=== PATIENT | female | born 1985 | race Caucasian/White ===

== ENCOUNTER 2018-08-06 17:13 | Inpatient (IN) | payer OTHER ==
[2018-08-06 17:57] VITALS: BMI 34.8
[2018-08-06] MEDS ORDERED: Ondansetron PF 4 MG/2 ML Vial IVP PRN (18:11)
[2018-08-06] MEDS ORDERED: Promethazine HCl 25 MG/ML VIAL IM PRN (18:11)
[2018-08-06] MEDS ORDERED: HYDROcodone/Acetaminophen 5/325 mg Tablet PO PRN ×2 (18:13)
[2018-08-06] MEDS ORDERED: Lidocaine 1% (PF) 30 ML VIAL SC PRN (18:13)
[2018-08-06] MEDS ORDERED: NS / Oxytocin 40 units/1000ml 1,000 ML IV PRN (18:13)
[2018-08-06] MEDS ORDERED: Ibuprofen 800 MG TAB PO PRN (18:13)
--- NOTE | 2018-08-06 18:31 | PDOC.LDHP ---
Labor and Delivery H&P Chief complaint: other HPI: Sent from office for blood pressure evaluation by Dr. Bernard. Patient seen at [facility] between [phone] in L&D recovery room. HPI: She is a 32 yo at 38 weeks 5 days with EDC 08/15/18 here for BP eval. Pressure in office were 140/90s. No LOREDO, visual changes, RUQ pain. Good movement, no vag bleed or LOF. No recent trauma. Denies chronic HTN hx. Current gestational age (weeks): 38 Due date: 08/15/18 Dating criteria: last menstrual period Grav: 1 Para: 0 Current complications: none Abnormal US findings: No Current medications: pre- vitamins Previous surgical history: none Allergies/Adverse Reactions: Allergies Allergy/AdvReac Type Severity Reaction Status Date / Time No Known Allergies Allergy Verified 08/06/18 17:58 Social history: none - Physical Exam Vital signs reviewed and normal: yes (Last BP: 138/88 but prior 135/93) General: NAD Abdomen: gravid (NTTP, [place] EFW 7 lbs, cephalic. No visual markings.) Extremeties: trace edema FHT: category 1, variability present [place] contractions every: None - Vaginal Exam cm dilated: 1 (Moderate consitency mid-position) Effacement: 50% (40%) Station: -2 - Assessment L&D Assessment: medically indicated induction (Mild PIH, at early term) - Plan Plan: admit to L&D, cervical ripening (Cytotec vs. Balloon discussed with patient. I have elected for Cytotec starting at 2100. Patient aware of possible failure to change cervix. Pitocin also discussed with patient.), informed consent obtained, other ( I have flaca CBC, CMP as PIH work up as urine protien was negative in office. Mag sulfate for any severe criteria. Check GBS status.)
[2018-08-06] MEDS: Lactated Ringer's 1,000 ML IV SCH (19:28)
[2018-08-06 19:49] LABS: Hemoglobin 13.2 g/dL (12.0-16.0); Mean Corpuscular HGB CONC 33.8 g/dL (32.0-36.0); Mean Corpuscular Hemoglobin 31.5 pg (27.0-31.0); Mean Platelet Volume 9.9 fL (7.4-10.4); Platelet Count 204 thou/uL (130-400); RBC Distribution Width 11.9 % (11.5-14.5); Red Blood Cell (RBC) Count 4.18 mill/uL (4.20-5.40); White Blood Cell (WBC) Count 10.3 thou/uL (4.8-10.8)
[2018-08-06 20:05] LABS: ALT (SGPT) 31 U/L (8-55); AST (SGOT) 32 U/L (5-34); Albumin 3.8 g/dL (3.5-5.0); Alkaline Phosphatase 211 U/L (40-150); Anion Gap 14 mmol/L (10-20); BUN (Urea Nitrogen) 15 mg/dL (7.0-18.7); Bilirubin, Total 0.7 mg/dL (0.2-1.2); Calc. Creatinine Clearance 184 mL/min (70-130); Calcium 9.8 mg/dL (7.8-10.44); Carbon Dioxide 20 mmol/L (22-29); Chloride 105 mmol/L (98-107); Estimated GFR-MDRD Greater than 90; Glucose 71 mg/dL (70-105); Protein, Total 6.8 g/dL (6.0-8.3); Sodium 135 mmol/L (136-145)
[2018-08-06 20:22] LABS: Syphilis Antibody Nonreactive (Nonreactive); Syphilis Antibody Index 0.05 S/CO (<1.00 Non-Reactive)
[2018-08-06 20:23] LABS: HBSAg Index 0.18 S/CO (0-0.99); HIV (1/2) Antibody/Antigen Non-Reactive (NonReactive); HIV 1/2 INDEX 0.11 S/CO (<1.00); Hep B Surf Ag Non-Reactive S/CO (NonReactive)
[2018-08-06] MEDS: Misoprostol 100 MCG TAB VAG SCH (21:30)
[2018-08-06] MEDS ORDERED: Misoprostol 100 MCG TAB VAG SCH (22:00)
[2018-08-07] MEDS: Misoprostol 100 MCG TAB VAG SCH ×4 (00:31→14:53)
--- NOTE | 2018-08-07 00:39 | PDOC.EVN ---
Event Note - Event Note Event Note: Lab check: cbc/cmp wnl
[2018-08-07] MEDS: Lactated Ringer's 1,000 ML IV SCH ×3 (00:41→07:57)
[2018-08-07] MEDS: Butorphanol Tartrate 1 MG/ML VIAL SLOW IVP PRN ×2 (04:28→05:42)
[2018-08-07] MEDS ORDERED: Fentanyl 4 mcg/Bup 0.1% Cadd 100 ML ONE (06:03)
[2018-08-07] MEDS ORDERED: Acetaminophen 325 MG TAB PO PRN (06:48)
[2018-08-07] MEDS ORDERED: Eucerin (Mineral Oil/Petrolatum,White) 30 gm Jar TOP PRN (06:48)
[2018-08-07] MEDS ORDERED: ePHEDrine/0.9% NaCl/PF SYRINGE 50 mg/10 ml SLOW IVP PRN (06:48)
[2018-08-07] MEDS ORDERED: diphenhydrAMINE 50 MG/ML VIAL IVP PRN (06:48)
[2018-08-07] MEDS ORDERED: Promethazine HCl 25 MG/ML VIAL IM PRN ×2 (06:48→11:47)
[2018-08-07] MEDS ORDERED: Naloxone HCl 0.4 mg/ml Vial IVP PRN ×2 (06:48)
[2018-08-07] MEDS ORDERED: Lactated Ringer's 500 ML IV PRN (06:48)
[2018-08-07] MEDS ORDERED: Ondansetron PF 4 MG/2 ML Vial IVP PRN ×2 (06:48→11:47)
[2018-08-07] MEDS ORDERED: Fentanyl 4 mcg/Bupivacaine 0.1% Cassette 100 ML EPIDURAL SCH (07:00)
[2018-08-07] MEDS ORDERED: Communication Order-Pharmacy FS SCH (07:00)
--- NOTE | 2018-08-07 08:10 | PDOC.LDPN ---
Labor & Delivery Progress Note - Objective Vital signs reviewed and normal: yes General: NAD Uterine fundus: non tender SVE: by me Dilation: 9 Effacement: 100% Station: 1+ FHT: category 2 (decreased variability with occ variables, occasional lates noted. Patient is on her side. 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
[2018-08-07] MEDS: NS / Oxytocin 40 units/1000ml 1,000 ML IV SCH ×2 (11:36→13:52)
[2018-08-07] MEDS ORDERED: Milk Of Magnesia 30 ML UDCUP PO PRN (11:47)
[2018-08-07] MEDS ORDERED: HYDROcodone/Acetaminophen 5/325 mg Tablet PO PRN ×2 (11:47)
[2018-08-07] MEDS ORDERED: diphenhydrAMINE 25 MG CAP PO PRN (11:47)
[2018-08-07] MEDS ORDERED: Adacel (T-DAP) 0.5 ML VIAL IM ONE (11:47)
[2018-08-07] MEDS ORDERED: Misoprostol 200 MCG TAB VAG PRN (11:47)
[2018-08-07] MEDS ORDERED: Bisacodyl 10 MG SUPP PR PRN (11:47)
[2018-08-07] MEDS ORDERED: Measles/Mumps/Rubella 10 MCG/0.5 ML VIAL SC ONE (11:47)
[2018-08-07] MEDS ORDERED: Varicella virus, LIVE 0.5 ML VIAL SC ONE (11:47)
[2018-08-07] MEDS ORDERED: Benzocaine/Menthol 20-0.5% 60 ML CAN TOP PRN (11:47)
[2018-08-07] MEDS ORDERED: Lanolin Ointment 7 GM TUBE TOP PRN (11:47)
[2018-08-07] MEDS ORDERED: Preparation H Ointment 28 GM TUBE PR PRN (11:47)
--- NOTE | 2018-08-07 11:53 | PDOC.OPDEL ---
OB Operative/Delivery Note Delivery Dr/Surgeon: Sujatha Dailey MD Pre-Delivery Diagnosis: medically indicated induction Procedure/Post Delivery Dx: spontaneous vaginal delivery Weeks gestation: 38 (38w6d) Anesthesia: epidural - Findings A Sex: female (Dionte) Weight: 5 lb 11 oz - 1 min: 8 - 5 min: 9 - Additional Findings/Plan Placenta delivered: spontaneous Repaired Obstetrical Laceration: 1st degree Estimated blood loss: QBL 124ml Compilations/Other Findings: Delivery of viable female in ROP presentation without difficulty. Mom and baby doing well. Post delivery plan: routine recovery
[2018-08-07] MEDS: Ibuprofen 800 MG TAB PO SCH ×2 (13:52→21:32)
[2018-08-07] MEDS: Ferrous Sulfate 325 MG TAB PO SCH (16:59)
[2018-08-07] MEDS ORDERED: Bupivacaine/Epinephrine 0.25% 30 ML VIAL ONE (18:00)
[2018-08-07] MEDS: Docusate Calcium (SURFAK) 240 MG CAP PO SCH (21:32)
[2018-08-08] MEDS: Ibuprofen 800 MG TAB PO SCH ×3 (05:39→21:17)
--- NOTE | 2018-08-08 08:21 | PDOC.PP ---
Post Progress Note Post Day #: 1 Subjective: Doing well and ambulating. No LOREDO nor visual changes, nor RUQ pain. Desires to stay until tomorrow PO intake tolerated: yes Flatus: yes Ambulation: yes Vital Signs (12 hours) Temp Pulse Resp BP Pulse Ox 08/08/18 08:03 98.0 F 71 20 95/50 L 100 08/08/18 04:33 98.1 F 71 17 120/80 08/08/18 01:26 98.1 F 82 18 116/69 08/07/18 21:18 97.8 F 73 12 140/71 99 Weight Weight 203 lb - Physical Examination General: NAD Cardiovascular: no m/r/g Respiratory: clear to auscultation bilaterally Abdominal: + bowel sounds, lochia, no distention, appropriately TTP Extremities: negative homans (B) Neurological: no gross focal deficits Psychiatric: A&Ox3, normal affect Result Diagrams: 08/06/18 19:31 08/06/18 19:31 Additional Labs: Post Labs Blood Type A POSITIVE 08/06/18 19:31 Hep Bs Antigen Non-Reactive S/CO (NonReactive) 08/06/18 19:31 (1) PIH ( induced hypertension) Code(s): O13.9 - GESTATIONAL HTN W/O SIGNIFICANT PROTEINURIA, UNSP TRIMESTER Status: Acute (2) Primigravida in third trimester Code(s): Z34.03 - ENCNTR FOR SUPRVSN OF NORMAL FIRST PREG, THIRD TRIMESTER Status: Acute (3) Vaginal delivery Code(s): O80 - ENCOUNTER FOR FULL-TERM UNCOMPLICATED DELIVERY Status: Acute - Assessment/Plan PPD1 s/p cytotec for mild hypertension in . BPs PP so far are generally wnl with one recent BP of 140/70s. ASX. We will follow BPs today. She will be 24 hrs PP today at around 1130AM.
[2018-08-08] MEDS: Prenatal Vitamin 1 TAB PO SCH (09:35)
[2018-08-08] MEDS: Docusate Calcium (SURFAK) 240 MG CAP PO SCH ×2 (09:35→21:17)
[2018-08-08] MEDS: Ferrous Sulfate 325 MG TAB PO SCH ×2 (09:36→20:22)
[2018-08-09] MEDS: Ibuprofen 800 MG TAB PO SCH (05:38)
--- NOTE | 2018-08-09 05:48 | PDOC.PP ---
Post Progress Note Post Day #: 2 Subjective: Doing well on PPD2 PO intake tolerated: yes Flatus: yes Ambulation: yes Vital Signs (12 hours) Temp Pulse Resp BP Pulse Ox 08/09/18 00:15 98.0 F 75 16 123/78 18 21:17 98.3 F 67 16 117/74 98 Weight Weight 203 lb BPs and temps reviewed from last 24 hours - Physical Examination General: NAD Cardiovascular: no m/r/g Respiratory: clear to auscultation bilaterally Abdominal: + bowel sounds, lochia, no distention, appropriately TTP Extremities: negative homans (B) Neurological: no gross focal deficits Psychiatric: A&Ox3, normal affect Result Diagrams: 08/06/18 19:31 08/06/18 19:31 Additional Labs: Post Labs Blood Type A POSITIVE 08/06/18 19:31 Hep Bs Antigen Non-Reactive S/CO (NonReactive) 08/06/18 19:31 (1) PIH ( induced hypertension) Code(s): O13.9 - GESTATIONAL HTN W/O SIGNIFICANT PROTEINURIA, UNSP TRIMESTER Status: Acute (2) Primigravida in third trimester Code(s): Z34.03 - ENCNTR FOR SUPRVSN OF NORMAL FIRST PREG, THIRD TRIMESTER Status: Acute (3) Vaginal delivery Code(s): O80 - ENCOUNTER FOR FULL-TERM UNCOMPLICATED DELIVERY Status: Acute - Assessment/Plan PPD2 doing well, and desires discharge home. OK for discharge. As she was here for mild BPs on admit, although they have been normal , I have recommended she follow up with a BP check in 2 weeks. Dandrerin for discharge.
[2018-08-09] MEDS: Ferrous Sulfate 325 MG TAB PO SCH (08:29)
[2018-08-09] MEDS: Prenatal Vitamin 1 TAB PO SCH (09:22)
[2018-08-09] MEDS: Docusate Calcium (SURFAK) 240 MG CAP PO SCH (09:22)
[2018-08-09 09:31] VITALS: BP 119/71; TEMP 97.6
== END 2018-08-09 12:30 | disposition home or self-care (01) | DRG 807 ==
LOC: L&D/OP 17:13 → L&D 23:43 → 3SW 08-07 13:39
PROVIDERS: ADMIT Obstetrics & Gynecology; ATTEND Obstetrics & Gynecology
PROC: 0U7C7ZZ Dilation of Cervix, Via Natural or Artificial Opening (ICD-10-PCS; 2018-08-06)
PROC: 10E0XZZ Delivery of Products of Conception, External Approach (ICD-10-PCS; principal; 2018-08-07)
PROC: 4A0HXCZ Measurement of Products of Conception, Cardiac Rate, External Approach (ICD-10-PCS; 2018-08-07)
PROC: 0HQ9XZZ Repair Perineum Skin, External Approach (ICD-10-PCS; 2018-08-07)
DX: O13.4 Gestational [pregnancy-induced] hypertension without significant proteinuria, complicating childbirth (principal); Z37.0 Single live birth; O76 Abnormality in fetal heart rate and rhythm complicating labor and delivery; O70.0 First degree perineal laceration during delivery; Z3A.38 38 weeks gestation of pregnancy
CPT/HCPCS: 51702; 80053; 85027; 86780; 86850; 86900; 86901; 87340; 87389; 99285; J0595; J2001